=== PATIENT | male | born 1940 | race Caucasian/White ===

== ENCOUNTER 2016-05-11 07:58 | Outpatient (CLI) | payer MEDICARE | END 2016-05-11 07:59 | disposition home or self-care (01) | DX: E16.2 Hypoglycemia, unspecified (principal) ==

== ENCOUNTER 2017-03-29 15:45 | Outpatient (CLI) | payer MEDICARE ==
--- NOTE | 2017-03-29 17:26 | MRI Preliminary Report ---
Exam: MRI BRAIN W/O IMPRESSION: 1.No acute CVA is identified on diffusion weighted images. 2. No soft tissue nodule is present in either internal auditory canal to suggest a vestibular schwann herminia by noncontrast MRI. 3. No cerebellar atrophy is present. No abnormal T2 or FLAIR signal is seen in either cerebellar mk sphere or in the brainstem. 4. Punctate FLAIR hyperintensities in the right frontal white matter are nonspecific. Commonly, these are seen secondary to small vessel ischemic change or in association with certain headache syndromes . 5. There is edema and some cystic change in the odontoid process with a small amount of fluid bilater ally at C1-C2. 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 A crystal line arthropathy could have this appearance as well. Correlation for a history of recent trauma would be of value to exclude fracture. One with expected greater amount of edema in the surrounding soft t issues in an infectious process Report phoned to the ordering physician's office at 5:22 PM on 03/29/2017 [facility] SITE ID: [id number]
--- NOTE | 2017-03-29 17:51 | MRI Report ---
EXAM: MRI BRAIN WITHOUT CONTRAST EXAM DATE: 03/29/2017 04:40 PM. CLINICAL HISTORY: Dizziness/imbalance. COMPARISON: None. TECHNIQUE: Multiplanar, multisequence T1-weighted and fluid-sensitive MR sequences of the brain were performed. Sequences optimized for routine evaluation. Other: None. IV Contrast: None. FINDINGS: No restricted diffusion signal is identified in the brain parenchyma. No abnormal magnetic susceptibility is present. No cerebellar tonsillar ectopia is present. There is low T1-weighted signal involving the odontoid process. This is T2 hyperintense on the oliva l T2 sequence with small cystic areas present involving the odontoid process and the C2 vertebral bod y. A small amount of fluid is seen involving the articulation of the lateral mass of C1 with the C2 v ertebral body bilaterally. Age-appropriate prominence of the ventricles and sulci is noted. No extra-axial fluid collection is p resent. There are a few punctate subcortical FLAIR hyperintensities in the right frontal lobe. No abnormal T2 or FLAIR hyperintense signal is seen in either cerebellar hemisphere or in the brainst em. There is no cerebellar atrophy identified. Expected flow voids are seen in the major intracranial vessels at the skull base. No significant effusion is identified in the mastoid air cells on the right or on the left. No mass is identified in either orbit. An expected flow void is seen in the superior sagittal sinus. On the axial volume T2-weighted sequence, series 501, no soft tissue nodule is identified in either i nternal auditory canal. The inner ear structures have a normal MRI appearance. The most superior aspe ct of the superior semicircular canal on the left is not included. An air-fluid level is seen in a right sphenoid air cell. IMPRESSION: 1. No acute CVA is identified on diffusion-weighted images. 2. No soft tissue nodule is present in either internal auditory canal to suggest a vestibular schwann herminia by noncontrast MRI. 3. No cerebellar atrophy is present. No abnormal T2 or FLAIR signal is seen in either cerebellar mk sphere or in the brainstem. 4. Punctate FLAIR hyperintensities in the right frontal white matter are nonspecific. Commonly, these are seen secondary to small vessel ischemic change or in association with certain headache syndromes . 5. There is edema and some cystic change in the odontoid process with a small amount of fluid bilater ally at C1-C2. 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 A crystal line arthropathy could have this appearance as well. Correlation for a history of recent trauma would be of value to exclude fracture. Typically infection would have a greater amount of associated edema in the soft tissues Report phoned to the ordering physician's office at 5:22 PM on 03/29/2017. [facility] Referring Provider Line: [phone] SITE ID: [id number]
--- NOTE | 2017-03-29 19:43 | CT Preliminary Report ---
Exam: CT ABDOMEN/PELVIS W/O IMPRESSION: 1. No right sided abdominal hernia. 2. Fat-containing umbilical hernia. 3. No localizing acute inflammatory process demonstrated. [facility] The call report notification system was initiated by Dr. Babak Barillas at 17:48 hrs on 7. SITE ID: [id number]
--- NOTE | 2017-03-29 19:46 | CT Report ---
EXAM: CT ABDOMEN AND PELVIS EXAM DATE: 03/29/2017 04:52 PM. CLINICAL HISTORY: Right sided low pelvis hernia. Surgery years ago. New pain. COMPARISONS: None. TECHNIQUE: Routine helical CT imaging was performed through the abdomen and pelvis. IV contrast: No. Enteric contrast: No. Reconstructions: Coronal and sagittal. In accordance with CT protocol optimization, one or more of the following dose reduction techniques w ere utilized for this exam: automated exposure control, adjustment of mA and/or KV based on patient s ize, or use of iterative reconstructive technique. FINDINGS: Lung Bases: Unremarkable. Liver: Liver is normal in size. Gallbladder/Bile Ducts: Unremarkable. Spleen: Normal in size. Pancreas: Normal in size and contour. Adrenal Glands: Normal. Kidneys: No kidney stone or hydronephrosis. Peritoneal Cavity/Bowel: There is a fat-containing umbilical hernia defect measuring 1.2 cm in diamet er. There is fat extending into the left inguinal canal. No other focal fascial defects. Bowel is nor mal in caliber. No abnormal fluid or gas collection. Pelvic Organs: Urinary bladder appears within normal limits. Vasculature: No abdominal aortic aneurysm. There is moderate atherosclerotic calcification. 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 Other: None. IMPRESSION: 1. No right sided abdominal hernia. 2. Fat-containing umbilical hernia. 3. No localizing acute inflammatory process demonstrated. [facility] The call report notification system was initiated by Dr. Babak Barillas at 17:48 hrs on 7. Referring Provider Line: [phone] SITE ID: [id number]
== END 2017-03-29 15:46 | disposition home or self-care (01) ==
LOC: DI 15:45
PROVIDERS: ATTEND Specialist
DX: K42.9 Umbilical hernia without obstruction or gangrene (principal); R29.818 Other symptoms and signs involving the nervous system
CPT/HCPCS: 70551; 74176

== ENCOUNTER 2019-02-25 08:48 | Outpatient (CLI) | payer MEDICARE, OTHER ==
--- NOTE | 2019-02-25 14:56 | XRAY Report ---
Reason: COUGH NON PRODUCTIVE Procedure Date: 02/25/2019 Accession Number: [id number] / [id number] Procedure: XR - Chest 2 View X-Ray CPT Code: 94171 Final Report FULL RESULT: EXAM: CHEST RADIOGRAPHY EXAM DATE: 02/25/2019 08:57 AM. CLINICAL HISTORY: Cough non-productive. COMPARISON: None. TECHNIQUE: 2 views. FINDINGS: Lungs/Pleura: A hyperdense 6 mm nodule is seen in the upper lateral left lung, given plain radiographic visibility at this size might favor a granuloma. No focal opacities evident. No pleural effusion. No pneumothorax. Normal volumes. Mediastinum: Calcifications of the aortic arch are noted. Pulmonary arteries appear prominent. Cardiac silhouette is within normal limits for size. Calcifications in the bilateral hilar region, possible evidence of prior granulomatous disease. Other: None. IMPRESSION: Question prior granulomatous disease. No acute cardiopulmonary abnormality is detected. [facility]
== END 2019-02-25 08:49 | disposition home or self-care (01) ==
LOC: DI 08:48
PROVIDERS: ATTEND Family Medicine
DX: R05 Cough (principal)
CPT/HCPCS: 71046